=== PATIENT | male | born 1960 | race Caucasian/White ===

== ENCOUNTER 2021-12-30 11:49 | Emergency (ER) | payer MEDICAID ==
[~2021-12-30] VITALS: Ht 170.2 cm; Wt 60.0 kg
[2021-12-30] MEDS ORDERED: DICLOFENAC SODIUM 1% 100 GM GEL [4GM] TP ONE (12:30)
[2021-12-30 13:08] VITALS: BP 132/57
== END 2021-12-30 13:30 | disposition home or self-care (01) ==
LOC: EMS 11:49
DX: M17.12 Unilateral primary osteoarthritis, left knee (principal)
CPT/HCPCS: 99283

== ENCOUNTER 2022-04-24 20:59 | Emergency (ER) | payer MEDICAID ==
[~2022-04-24] VITALS: Ht 172.7 cm; Wt 70.0 kg
[2022-04-24 21:23] VITALS: BP 122/66
[2022-04-24] MEDS ORDERED: PERTUSS(ACELL),DIPH,TET VAC/PF 0.5 ML SYRINGE IM. ONE (22:00)
[2022-04-24] MEDS ORDERED: RABIES VACCINE (PCEC)/PF 2.5 UNITS/ML SYRINGE IM. ONE (22:00)
[2022-04-24] MEDS ORDERED: LIDOCAINE 1% 10 ML VIAL SQ ONE (22:00)
[2022-04-24] MEDS ORDERED: HYDROGEN PEROXIDE 118 ML SOLUTION TP ONE (22:00)
[2022-04-24] MEDS ORDERED: NEOMYCIN/BACITRACIN/POLYMYXIN B OINTMENT PACKET TP ONE (22:00)
[2022-04-24] MEDS ORDERED: IBUPROFEN 600 MG TABLET PO ONE (23:00)
[2022-04-24] MEDS ORDERED: CEPHALEXIN MONOHYDRATE 500 MG CAPSULE PO ONE (23:00)
[2022-04-24] MEDS ORDERED: CEPH-558 PO (23:21)
[2022-04-24] MEDS ORDERED: IBUP-1554 PO (23:21)
== END 2022-04-25 00:12 | disposition home or self-care (01) ==
LOC: EMS 21:04
DX: S81.812A Laceration without foreign body, left lower leg, initial encounter (principal); F17.210 Nicotine dependence, cigarettes, uncomplicated; W54.0XXA Bitten by dog, initial encounter; Y93.89 Activity, other specified; Y92.89 Other specified places as the place of occurrence of the external cause; Y99.8 Other external cause status
CPT/HCPCS: 99284; 90675; 90715; 90471; 90472; 12005; J3490

== ENCOUNTER 2022-04-28 13:56 | Emergency (ER) | payer MEDICAID ==
[~2022-04-28] VITALS: Ht 157.5 cm; Wt 60.0 kg
[~2022-04-28 13:56] MED LIST: CEPH-558 PO; IBUP-1554 PO
[2022-04-28 14:15] VITALS: BP 134/74
== END 2022-04-28 15:45 | disposition home or self-care (01) ==
LOC: EMS 14:01
DX: S81.852D Open bite, left lower leg, subsequent encounter (principal); W54.0XXD Bitten by dog, subsequent encounter; Z48.00 Encounter for change or removal of nonsurgical wound dressing; F17.210 Nicotine dependence, cigarettes, uncomplicated
CPT/HCPCS: 99281; Z7502

== ENCOUNTER 2023-09-05 17:34 | Emergency (ER) | payer MEDICAID ==
[~2023-09-05] VITALS: Ht 172.7 cm; Wt 67.3 kg
[2023-09-05] MEDS ORDERED: AMPICILLIN SODIUM/SULBACTAM NA 3 GM in SODIUM CHLORIDE 0.9% 100 ML IV ONE (18:30)
[2023-09-05] MEDS ORDERED: VANCOMYCIN HCL 1.25 GM in DEXTROSE 5%-WATER 250 ML IV ONE (18:30)
[2023-09-05] MEDS ORDERED: FLUORESCEIN SODIUM 1 MG STRIP OU ONE (18:30)
[2023-09-05] MEDS ORDERED: PROPARACAINE HCL 0.5% 15 ML OPHTHALMIC SOLUTION OU ONE (18:30)
[2023-09-05 18:41] LABS: COVID AG,FIA SOURCE NASAL SWAB
[2023-09-05 18:51] LABS: BASOPHILS % (AUTO) 0.7 % (0.0-2.0); EOSINOPHILS % (AUTO) 1.6 % (1.0-6.0); HEMATOCRIT 43.5 % (41-53); HEMOGLOBIN 15.2 g/dL (13.5-17.5); LYMPHOCYTES # (AUTO) 2.5 K/uL (1.0-4.8); LYMPHOCYTES % (AUTO) 36.2 % (22.0-44.0); MEAN CORPUSCULAR HGB CONC 34.9 G/dL (31.0-37.0); MEAN CORPUSCULAR VOLUME 100 fL (80-100); MONOCYTES # (AUTO) 0.6 K/uL (0.1-1.0); MONOCYTES % (AUTO) 8.2 % (2.0-9.0); NEUTROPHILS # (AUTO) 3.7 K/uL (1.8-7.7); NEUTROPHILS % (AUTO) 53.3 % (40.0-70.0); PLATELET COUNT (AUTO) 238 K/uL (150-450); RED BLOOD CELL COUNT(AUTO) 4.35 MIL/uL (4.50-5.90); RED CELL DISTRIBUTION WIDTH 13.3 % (11.5-14.5)
[2023-09-05 18:59] LABS: SARS-COV2 (COVID) ANTIGEN,FIA Negative (Negative)
[2023-09-05 19:26] LABS: RBC MORPHOLOGY COMMENT ABNORMAL RBC MORPH
[2023-09-05 19:36] LABS: ANION GAP 9 mmol/L (8-16); CALCIUM, TOTAL 9.2 mg/dL (8.8-10.5); CARBON DIOXIDE 29 mmol/L (22-29); CHLORIDE 92 mmol/L (98-107); CREATININE 0.71 mg/dL (0.60-1.30); GLOMERULAR FILTR. RATE CALC > 60 mL/min (>60); GLUCOSE,RANDOM 84 mg/dL (70-110); POTASSIUM 3.5 mmol/L (3.5-5.1); SODIUM SERUM 130 mmol/L (136-145); UREA NITROGEN, BLOOD 3 mg/dL (7-18)
[2023-09-05 19:42] LABS: ALANINE AMINOTRANSFERASE 66 U/L (12-78); ALBUMIN 3.4 g/dL (3.4-5.0); ALKALINE PHOSPHATASE 132 U/L (46-116); ASPARTATE AMINOTRANSFERASE 83 U/L (15-37); BILIRUBIN,TOTAL 0.5 mg/dL (0.1-1.0); TOTAL PROTEIN, SERUM 8.6 g/dL (6.4-8.2)
[2023-09-05 21:40] VITALS: BP 123/71; PULSE 84; RESP 16; TEMP 99.1
[2023-09-05] MEDS ORDERED: IOHEXOL 350 MG/ML 100 ML VIAL ONE (22:50)
[2023-09-05] MEDS ORDERED: SODIUM CHLORIDE 0.9% 100 ML ONE (22:50)
== END 2023-09-06 00:34 | disposition short-term general hospital (02) ==
LOC: EMS 17:34
DX: H05.011 Cellulitis of right orbit (principal); H44.001 Unspecified purulent endophthalmitis, right eye; F17.210 Nicotine dependence, cigarettes, uncomplicated; F10.90 Alcohol use, unspecified, uncomplicated; Z98.890 Other specified postprocedural states
CPT/HCPCS: 99285; 96365; 70487; 87426; 80053; 85025; 87040; 36415; 96368; J3370; J0295; Q9967; J7060; J7050

== ENCOUNTER 2024-11-29 18:38 | Emergency (ER) | payer SELFPAY ==
[~2024-11-29] VITALS: Ht 172.7 cm; Wt 77.3 kg
[2024-11-29 19:46] LABS: BASOPHILS % (AUTO) 0.2 % (0.0-2.0); EOSINOPHILS % (AUTO) 0.1 % (1.0-6.0); HEMOGLOBIN 14.2 g/dL (13.5-17.5); LYMPHOCYTES % (AUTO) 23.2 % (22.0-44.0); MEAN CORPUSCULAR HEMOGLOBIN 34.7 pg (26.0-34.0); MEAN CORPUSCULAR HGB CONC 33.8 G/dL (31.0-37.0); MEAN CORPUSCULAR VOLUME 102 fL (80-100); MONOCYTES # (AUTO) 0.9 K/uL (0.1-1.0); NEUTROPHILS # (AUTO) 5.7 K/uL (1.8-7.7); NEUTROPHILS % (AUTO) 66.5 % (40.0-70.0); PLATELET COUNT (AUTO) 149 K/uL (150-450); RED CELL DISTRIBUTION WIDTH 13.2 % (11.5-14.5); WHITE BLOOD COUNT (AUTO) 8.6 K/uL (4.5-11.0)
[2024-11-29 19:54] LABS: ANION GAP 7 mmol/L (8-16); CALCIUM, TOTAL 8.8 mg/dL (8.8-10.5); CARBON DIOXIDE 31 mmol/L (22-29); CHLORIDE 99 mmol/L (98-107); CREATININE 1.05 mg/dL (0.60-1.30); GLOMERULAR FILTR. RATE CALC > 60 mL/min (>60); GLUCOSE,RANDOM 96 mg/dL (70-110); POTASSIUM 3.9 mmol/L (3.5-5.1); SODIUM SERUM 137 mmol/L (136-145); UREA NITROGEN, BLOOD 11 mg/dL (7-18)
[2024-11-29 20:22] LABS: ALBUMIN 3.5 g/dL (3.4-5.0); BILIRUBIN,DIRECT 0.2 mg/dL (0.00-0.20); BILIRUBIN,TOTAL 0.3 mg/dL (0.1-1.0); TOTAL PROTEIN, SERUM 8.1 g/dL (6.4-8.2)
[2024-11-29] MEDS: ACETAMINOPHEN 500 MG TABLET PO ONE (22:28)
[2024-11-29] MEDS: IBUPROFEN 400 MG TABLET PO ONE (22:28)
[2024-11-29 22:39] VITALS: BP 129/78; PULSE 76; RESP 18; TEMP 97.9; O2SAT 98
== END 2024-11-29 22:51 | disposition home or self-care (01) ==
LOC: EMS 18:52
DX: S02.2XXA Fracture of nasal bones, initial encounter for closed fracture (principal); F17.210 Nicotine dependence, cigarettes, uncomplicated; Y04.0XXA Assault by unarmed brawl or fight, initial encounter; Y93.89 Activity, other specified; Y92.89 Other specified places as the place of occurrence of the external cause; Y99.8 Other external cause status
CPT/HCPCS: 70450; 70486; 80048; 80076; 85025; 99284